=== PATIENT | male | born 2000 | race Caucasian/White ===

== ENCOUNTER 2021-09-02 02:25 | Inpatient (IN) ==
--- NOTE | 2021-09-02 02:44 | Emergency Department Note ---
Impression & Plan Suicidal thoughts Admit ED Provider Note HPI: The patient is a 21-year-old male with history of alcohol abuse, he is currently in inpatient rehabilitation for alcohol abuse at [facility], presents the emergency department with suicidal thoughts. Patient states that today he was beginning to have thoughts of suicide and was thinking about hanging himself. He mentioned this to one of the nurses at his facility and therefore was sent to the ED for evaluation. On arrival the patient is calm and cooperative, he is in no acute distress on my initial evaluation ROS: -Psychiatric: Suicidal thoughts *10 point review systems was conducted and is otherwise negative unless stated above *Outpatient medications and allergy history reviewed PE: General: Alert, NAD HEENT: Normocephalic, atraumatic Eyes: Extraocular eye movement is intact, no scleral erythema Pulmonary: Clear to auscultation bilaterally, no wheezing Cardio: Regular rate and rhythm GI: Abdomen is soft, nontender : No suprapubic tenderness MSK: No evidence of trauma or malformation of the extremities, no edema Skin: No evidence of rash Neuro: Alert, no focal deficits Psychiatric: Cooperative Medical Decision Making: Patient presented to the emergency department with suicidal thoughts, stated he was having thoughts of wanting to hang himself. He is currently inpatient for alcohol addiction at the [facility]. Patient was medically cleared while here in the ED during my shift, assessed by case management, patient has been assessed for possible placement at [facility] but he is from the [facility] and is requesting transfer to a [facility]. Referral is currently outgoing, will plan for admission here at [facility] if the patient is not able to be accepted closer to home in the [facility]. Patient remained calm and cooperative throughout his stay here in the ED during my shift. He was signed out to my colleague, Dr. Mina, pending final disposition in regards to the above referrals for inpatient psychiatric care. Patient is here voluntarily currently under 201. Diagnosis: 1. Suicidal thoughts with plan Disposition: Hand Off Shaquille Reyes DO Emergency Medicine Past Med/Surg History Social History Smoking Status: Current every day smoker Tobacco Type: Cigarettes and E-cigarettes / Vaping Preferred Language: Occitan Feels Safe at Home: Yes Allergies Allergies Allergy/AdvReac Type Severity Reaction Status Date / Time No Known Allergies Allergy Unverified 09/02/21 03:09 Home Meds Home Medications Medication Instructions Recorded Confirmed quetiapine 100 mg tablet 100 mg PO HS 09/02/21 09/02/21 Results & Data (ED) Vital Signs Vital Signs - 24 hr 09/02/21 02:29 09/02/21 04:17 Temperature 36.8 C Temperature Source Oral Pulse Rate 103 H Pulse Rate [Left Finger] 78 Respiratory Rate 18 20 Blood Pressure 163/81 H Blood Pressure [Left Arm] 129/78 Blood Pressure Mean 108 Blood Pressure Mean [Left Arm] 95 Pulse Oximetry 98 98 Oxygen Delivery Method Room Air Room Air Sepsis Recent Fever Within 48 Hours No Sepsis New/Unexplained Change in Mental Status N/A Sepsis Action Taken by Nursing No Action Required Laboratory Data Result diagrams: 09/02/21 02:50 09/02/21 02:50 Lab Results 09/02/21 09/02/21 09/02/21 Range/Units 02:30 02:30 02:50 WBC 8.75 (4.8-10.8) K/ul RBC 4.91 (4.63-6.08) M/uL Hgb 14.8 (14.0-18.0) g/dl Hct 41.4 (40.1-51.0) % MCV 84.3 (80.0-100.0) fL MCH 30.1 (25.0-34.0) pg MCHC 35.7 (32.0-36.0) g/dL RDW Std Deviation 34.7 L (36.4-46.3) fL RDW Coeff of Airam 11.4 L (11.5-14.5) % Plt Count 269 (130-400) K/uL MPV 9.5 (9.4-12.4) fL Immature Gran % (Auto) 0.2 % Neut % (Auto) 54.5 % Lymph % (Auto) 35.3 % [place] % (Auto) 7.7 % Eos % (Auto) 1.8 % Baso % (Auto) 0.5 % Neut # (Auto) 4.77 (1.4-6.5) K/uL Lymph # (Auto) 3.09 (1.2-3.4) K/uL [place] # (Auto) 0.67 (0.24-0.82) K/uL Eos # (Auto) 0.16 (0-0.50) K/uL Baso # (Auto) 0.04 (0-0.2) K/uL Immature Gran # (Auto) 0.02 (0.00-0.02) K/uL Sodium (136-145) mmol/L Potassium (3.5-5.1) mmol/L Chloride (98-107) mmol/L Carbon Dioxide (21-32) mmol/L Anion Gap (3-11) BUN (6-23) mg/dl Creatinine (0.6-1.4) mg/dl Est Cr Clr Drug Dosing Est GFR ( Amer) ml/min Est GFR (Non-Af Amer) ml/min BUN/Creatinine Ratio (10-20) Glucose (70-99(Fasting)) mg/dl Calcium (8.5-10.1) mg/dl Total Bilirubin (0.2-1.0) mg/dl AST (13-39) U/L ALT (7-52) U/L Alkaline Phosphatase (34-104) U/L Total Protein (6.0-8.3) gm/dl Albumin (3.4-5.0) gm/dl Globulin (2.5-4.0) gm/dl Albumin/Globulin Ratio (0.9-2) TSH (0.300-4.500) uIu/ml Urine Color Yellow Urine Appearance Clear (Clear) Urine pH 6.0 (4.5-7.5) Ur Specific [place] 1.025 (1.000-1.030) Urine Protein Negative (Negative) Urine Glucose (UA) Negative (Negative) Urine Ketones Trace H (Negative) Urine Blood Negative (Negative) Urine Nitrite Negative (Negative) Urine Bilirubin Negative (Negative) Urine Urobilinogen Negative (Negative) Ur Leukocyte Esterase Negative (Negative) Salicylates (3.0-30) mg/dl Urine Opiates Screen Neg (Neg) Ur Methadone, Qual Neg (Neg) Acetaminophen (10-30) ug/ml Urine Barbiturates Neg (Neg) Ur Phencyclidine (PCP) Neg (Neg) U Amphetamin/Meth Scrn Neg (Neg) MDMA (Ecstasy) Screen Neg (Neg) U Benzodiazepines Scrn Neg (Neg) Ur Cocaine Metabolite Neg (Neg) U Marijuana (THC) Screen Pos H (Neg) Ethyl Alcohol mg/dL (<10.0) mg/dl SARS-CoV-2, RNA, NAAT (NEGATIVE) 09/02/21 09/02/21 09/02/21 Range/Units 02:50 02:50 02:50 WBC (4.8-10.8) K/ul RBC (4.63-6.08) M/uL Hgb (14.0-18.0) g/dl Hct (40.1-51.0) % MCV (80.0-100.0) fL MCH (25.0-34.0) pg MCHC (32.0-36.0) g/dL RDW Std Deviation (36.4-46.3) fL RDW Coeff of Airam (11.5-14.5) % Plt Count (130-400) K/uL MPV (9.4-12.4) fL Immature Gran % (Auto) % Neut % (Auto) % Lymph % (Auto) % [place] % (Auto) % Eos % (Auto) % Baso % (Auto) % Neut # (Auto) (1.4-6.5) K/uL Lymph # (Auto) (1.2-3.4) K/uL [place] # (Auto) (0.24-0.82) K/uL Eos # (Auto) (0-0.50) K/uL Baso # (Auto) (0-0.2) K/uL Immature Gran # (Auto) (0.00-0.02) K/uL Sodium 140 (136-145) mmol/L Potassium 3.7 (3.5-5.1) mmol/L Chloride 104 (98-107) mmol/L Carbon Dioxide 27 (21-32) mmol/L Anion Gap 9 (3-11) BUN 19 (6-23) mg/dl Creatinine 0.78 (0.6-1.4) mg/dl Est Cr Clr Drug Dosing Not Reportable Est GFR ( Amer) 147.5 ml/min Est GFR (Non-Af Amer) 127.2 ml/min BUN/Creatinine Ratio 24.4 H (10-20) Glucose 86 (70-99(Fasting)) mg/dl Calcium 9.1 (8.5-10.1) mg/dl Total Bilirubin 0.5 (0.2-1.0) mg/dl AST 20 (13-39) U/L ALT 13 (7-52) U/L Alkaline Phosphatase 47 (34-104) U/L Total Protein 6.8 (6.0-8.3) gm/dl Albumin 4.5 (3.4-5.0) gm/dl Globulin 2.3 L (2.5-4.0) gm/dl Albumin/Globulin Ratio 2.0 (0.9-2) TSH 3.395 (0.300-4.500) uIu/ml Urine Color Urine Appearance (Clear) Urine pH (4.5-7.5) Ur Specific [place] (1.000-1.030) Urine Protein (Negative) Urine Glucose (UA) (Negative) Urine Ketones (Negative) Urine Blood (Negative) Urine Nitrite (Negative) Urine Bilirubin (Negative) Urine Urobilinogen (Negative) Ur Leukocyte Esterase (Negative) Salicylates < 3.0 L (3.0-30) mg/dl Urine Opiates Screen (Neg) Ur Methadone, Qual (Neg) Acetaminophen < 3 L (10-30) ug/ml Urine Barbiturates (Neg) Ur Phencyclidine (PCP) (Neg) U Amphetamin/Meth Scrn (Neg) MDMA (Ecstasy) Screen (Neg) U Benzodiazepines Scrn (Neg) Ur Cocaine Metabolite (Neg) U Marijuana (THC) Screen (Neg) Ethyl Alcohol mg/dL (<10.0) mg/dl SARS-CoV-2, RNA, NAAT (NEGATIVE) 09/02/21 09/02/21 Range/Units 02:50 02:50 WBC (4.8-10.8) K/ul RBC (4.63-6.08) M/uL Hgb (14.0-18.0) g/dl Hct (40.1-51.0) % MCV (80.0-100.0) fL MCH (25.0-34.0) pg MCHC (32.0-36.0) g/dL RDW Std Deviation (36.4-46.3) fL RDW Coeff of Airam (11.5-14.5) % Plt Count (130-400) K/uL MPV (9.4-12.4) fL Immature Gran % (Auto) % Neut % (Auto) % Lymph % (Auto) % [place] % (Auto) % Eos % (Auto) % Baso % (Auto) % Neut # (Auto) (1.4-6.5) K/uL Lymph # (Auto) (1.2-3.4) K/uL [place] # (Auto) (0.24-0.82) K/uL Eos # (Auto) (0-0.50) K/uL Baso # (Auto) (0-0.2) K/uL Immature Gran # (Auto) (0.00-0.02) K/uL Sodium (136-145) mmol/L Potassium (3.5-5.1) mmol/L Chloride (98-107) mmol/L Carbon Dioxide (21-32) mmol/L Anion Gap (3-11) BUN (6-23) mg/dl Creatinine (0.6-1.4) mg/dl Est Cr Clr Drug Dosing Est GFR ( Amer) ml/min Est GFR (Non-Af Amer) ml/min BUN/Creatinine Ratio (10-20) Glucose (70-99(Fasting)) mg/dl Calcium (8.5-10.1) mg/dl Total Bilirubin (0.2-1.0) mg/dl AST (13-39) U/L ALT (7-52) U/L Alkaline Phosphatase (34-104) U/L Total Protein (6.0-8.3) gm/dl Albumin (3.4-5.0) gm/dl Globulin (2.5-4.0) gm/dl Albumin/Globulin Ratio (0.9-2) TSH (0.300-4.500) uIu/ml Urine Color Urine Appearance (Clear) Urine pH (4.5-7.5) Ur Specific [place] (1.000-1.030) Urine Protein (Negative) Urine Glucose (UA) (Negative) Urine Ketones (Negative) Urine Blood (Negative) Urine Nitrite (Negative) Urine Bilirubin (Negative) Urine Urobilinogen (Negative) Ur Leukocyte Esterase (Negative) Salicylates (3.0-30) mg/dl Urine Opiates Screen (Neg) Ur Methadone, Qual (Neg) Acetaminophen (10-30) ug/ml Urine Barbiturates (Neg) Ur Phencyclidine (PCP) (Neg) U Amphetamin/Meth Scrn (Neg) MDMA (Ecstasy) Screen (Neg) U Benzodiazepines Scrn (Neg) Ur Cocaine Metabolite (Neg) U Marijuana (THC) Screen (Neg) Ethyl Alcohol mg/dL < 10.0 (<10.0) mg/dl SARS-CoV-2, RNA, NAAT NEGATIVE (NEGATIVE) Discharge Plan Visit Data Chief Complaint: Mental Health Evaluation Stated Complaint: MENTAL HEALTH EVAL (SUICIDAL IDEATION) ED Provider: Shaquille Reyes Discharge Problem: Suicidal thoughts Forms Stand Alone Forms: [facility], Suicide Prevention Resources Prescriptions Prescriptions: No Action quetiapine 100 mg tablet 100 mg PO HS Referrals Referrals: PCP,NO [Primary Care Provider] -
[2021-09-02 03:05] LABS: Basophils # (auto) 0.04 K/uL (0-0.2); Basophils % (auto) 0.5 %; Eosinophils # (auto) 0.16 K/uL (0-0.50); Eosinophils % (auto) 1.8 %; Hematocrit (blood only) 41.4 % (40.1-51.0); Hemoglobin 14.8 g/dl (14.0-18.0); Immature Granulocytes # (auto) 0.02 K/uL (0.00-0.02); Immature Granulocytes % (auto) 0.2 %; Lymphocytes # (auto) 3.09 K/uL (1.2-3.4); Lymphocytes % (auto) 35.3 %; Mean Corpuscular Hemoglobin 30.1 pg (25.0-34.0); Mean Corpuscular Hgb Conc 35.7 g/dL (32.0-36.0); Mean Corpuscular Volume 84.3 fL (80.0-100.0); Mean Platelet Volume 9.5 fL (9.4-12.4); Monocytes # (auto) 0.67 K/uL (0.24-0.82); Monocytes % (auto) 7.7 %; Neutrophils # (auto) 4.77 K/uL (1.4-6.5); Neutrophils % (auto) 54.5 %; Platelet Count 269 K/uL (130-400); RDW Coefficient of Variation 11.4 % (11.5-14.5); RDW Standard Deviation 34.7 fL (36.4-46.3); Red Blood Count 4.91 M/uL (4.63-6.08); White Blood Count 8.75 K/ul (4.8-10.8)
[2021-09-02 03:20] LABS: Appearance Urine Clear (Clear); Bilirubin Urine Negative (Negative); Blood Urine Negative (Negative); Color Urine Yellow; Glucose Urine UA Negative (Negative); Ketones Urine Trace (Negative); Leukocyte Esterase Urine Negative (Negative); Nitrite Urine Negative (Negative); Protein Urine Negative (Negative); Specific Gravity Urine 1.025 (1.000-1.030); Urobilinogen Urine Negative (Negative)
[2021-09-02 03:30] LABS: Alanine Aminotransferase 13 U/L (7-52); Albumin Level 4.5 gm/dl (3.4-5.0); Alkaline Phosphatase 47 U/L (34-104); Anion Gap 9 (3-11); Aspartate Aminotransferase 20 U/L (13-39); BUN Creatinine Ratio 24.4 (10-20); Bilirubin,Total 0.5 mg/dl (0.2-1.0); Blood Urea Nitrogen 19 mg/dl (6-23); Calcium 9.1 mg/dl (8.5-10.1); Carbon Dioxide 27 mmol/L (21-32); Chloride 104 mmol/L (98-107); Est GFR (African American) 147.5 ml/min; Est GFR (Non-African American) 127.2 ml/min; Globulin 2.3 gm/dl (2.5-4.0); Glucose 86 mg/dl (70-99(Fasting)); Potassium 3.7 mmol/L (3.5-5.1); Sodium 140 mmol/L (136-145); Total Protein 6.8 gm/dl (6.0-8.3)
[2021-09-02 03:31] LABS: Acetaminophen < 3 ug/ml (10-30); Salicylate < 3.0 mg/dl (3.0-30)
[2021-09-02 04:07] LABS: Amphetamines+Metham, Urine Neg (Neg); Barbiturates, Urine Neg (Neg); Benzodiazepine, Urine Neg (Neg); Cocaine, Urine Neg (Neg); MDMA (Ecstacy), Urine Neg (Neg); Methadone, Urine Neg (Neg); Opiate, Urine Neg (Neg); Phencyclidine, Urine Neg (Neg)
--- NOTE | 2021-09-02 06:48 | Emergency Department Note ---
ED Visit Note Start Time: 644 Reason: Patient with PMHx of alcohol abuse underwent ED Observation for suicidal ideations. Fam Hx: No pertinent family history SocHx: See Below Assessment(s): Patient was reevaluated multiple times Summary: Patient was seen and evaluated by Dr. Graves and medically cleared. Patient went to hang himself and is currently from [facility] rehab. Currently looking for placement and appears as though patient will be placed at [facility] Disposition: Patient was accepted to [facility] at 12 PM Total Time:5:15 min .
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
[2021-09-02] MEDS ORDERED: hydrOXYzine HCl 25 MG TAB PO PRN ×2 (12:29)
[2021-09-02] MEDS ORDERED: ALUMINUM/MAGNESIUM SUSP 30 ML UDC PO PRN (12:29)
[2021-09-02] MEDS ORDERED: SODIUM CHLORIDE 0.65% NA SOLN 45 ML (OCEAN) PRN (12:29)
[2021-09-02] MEDS ORDERED: BISMUTH SUBSALICYLATE LIQD 236 ML PO PRN (12:29)
[2021-09-02] MEDS ORDERED: MAGNESIUM HYDROXIDE SUSP 30 ML UDC PO PRN (12:29)
[2021-09-02] MEDS ORDERED: ACETAMINOPHEN 325 MG TAB PO PRN (12:29)
[2021-09-02] MEDS ORDERED: QUEtiapine FUMARATE 25 MG TABLET PO STA (14:32)
[2021-09-02] MEDS: NICOTINE 21 MG/24 HR TDSY TD SCH (15:04)
[2021-09-02] MEDS ORDERED: QUEtiapine FUMARATE 100 MG TABLET PO SCH (21:00)
[2021-09-02] MEDS: QUEtiapine FUMARATE 100 MG TABLET PO SCH (21:25)
[2021-09-03] MEDS: NICOTINE 21 MG/24 HR TDSY TD SCH (07:51)
[2021-09-03 08:15] LABS: Chol HDL Ratio 2.6 (0-5)
--- NOTE | 2021-09-03 11:47 | Psychiatric Progress Note ---
Date of Service September 03, 2021 Impression / Recommendations Impression 21 yo male with hx of recurrent depressive symptoms (SI, poor sleep) presents on transfer from rehab for recurrence of suicidal thoughts. He does not identify a specific stressor but seems unmotivated to return to rehab. He is somewhat guarded at this time and cannot fully engage in breif intervention around his ETOH use. Need collateral from family and records. Presentation is suspicious for bipolar II disorder yet difficult differential given reported trauma hx and family hx of bipolar disorder and recent substance use. doesn't need AWSS protocol as well outside of window for ETOH withdrawal. 09/03/21: limited engagement in treatment, states he wants to be in rehab (1) Depressive disorder: (2) Alcohol use disorder: Plan 09/03/21: rehab referral, continue to encouragement engagement in treatment. 09/02/21: The patient was admitted to the [facility] ([facility]) on q15 min checks (behavioral with suicide precautions) for safety. The patient will participate in group, recreational, and milieu therapies and will be offered additional individual and family sessions as clinically appropriate. Although he asked about a 72 hr notice he understood his current treatment plan and was accepting of it, willing to take Seroquel prn currently and continue 100 mg this hs. Risks/benefits/alternatives were reviewed re: antipsychotics for mood and/or psychosis. Discussion included but was not limited to metabolic side effects, risks of TD and suicidal thoughts. There were no abnormal motor movements at baseline. Fasting glucose and lipid panel ordered for baseline monitoring. Inventory Assets Strengths: help seeking, employed Needs: aftercare planning, rehab Suicide Risk Level Suicide Risk Level: Moderate (q15 min suicide checks) Risk Factors Assessment Male: Yes : Yes Do You Have Access To A Gun?: No Health Problems: No Mental Health Diagnoses: Yes Substance Use Disorders: Yes Previous Attempt: No Protective Factors Assessment : No Employed: No Interval History Identifying Information WALDEMAR GIRALDO is a 21-year-old M who from [facility], has a history of depression, and was admitted on 09/02/21 11:50 on a 201 voluntary commitment for SI with plan to hang himself while at [facility] rehab. Chief Complaint "I just want to go to this one rehab where I feel comfortable". Review of Systems Sleep Information Total Hours of Sleep: 8.25 Meal Information Percent Meal Consumed - Breakfast: 100 Percent Meal Consumed - Lunch: 100 Percent Meal Consumed - Dinner: 100 Subjective Subjective Patient was seen & assessed and interval progress reviewed with nursing and social work. Requesting referral to a [facility] facility. He is rather evasive with regards to additional collateral psych hx, would not sign records for previous inpatient hospitalization. Signed MARTIN for mother but currently stating he does not want her contacted or involved in his stay. Indicates he is no longer suicidal. Doesn't engage with staff or go to programming, he won't elaborate on why. Does not appear paranoid in interactions when in day room watching tv. Refused hs Seroquel as didn't want it so close to 50 mg dose that he requested. Physical Exam Psychiatric Orientation: alert and oriented x 3 Apperance: appropriately groomed Eye Contact: + fair eye contact Motor Behavior: no abnormal motor movements Speech: normal rate/rhythm/volume of speech Affect: + depressed affect Mood: + anxious mood Thought Process: + concrete thought process Thought Content: reality based without delusions Suicidal Thoughts: denies suicidal thoughts, denies suicidal plan and denies suicidal intent Homicidal Thoughts: denies homicidal thoughts Hallucinations: no auditory hallucinations and no visual hallucinations Cognition: attention grossly intact and language grossly intact Estimated Intelligence: consistent with education level Insight: + limited insight Judgement: + limited judgement Vital Signs (Past 24 Hours) Last Vital Signs Temp 36.4 C L 09/03/21 06:50 Pulse 76 09/03/21 06:50 Resp 16 09/03/21 06:50 BP 106/72 09/03/21 06:50 Pulse Ox 98 09/02/21 12:45 O2 Del Method 09/02/21 12:45 Results & Data ([facility]) Laboratory Results Laboratory Results - last 24 hr 09/03/21 07:13 Fasting Glucose 84 Triglycerides 90 Cholesterol 144 LDL Cholesterol, Calc 71 VLDL Cholesterol, Calc 18 HDL Cholesterol 55 Cholesterol/HDL Ratio 2.6 Current Inpatient Medications Current Inpatient Medications: Current Inpatient Medications Acetaminophen (Acetaminophen 325 Mg Tab) 650 mg PO Q4H PRN PRN Reason: Headache or Minor Fever Stop: 10/02/21 12:28 Al Hydrox/Mg Hydrox/Simethicone (Aluminum/Magnesium Susp 30 Ml Udc) 30 ml PO Q4H PRN PRN Reason: GI Upset Stop: 10/02/21 12:28 Bismuth Subsalicylate (Bismuth Subsalicylate Liqd 236 Ml) 15 ml PO PRN PRN PRN Reason: Loose Stool Stop: 10/02/21 12:28 Hydroxyzine HCl (Hydroxyzine Hcl 25 Mg Tab) 50 mg PO HSZ PRN PRN Reason: Insomnia Stop: 10/02/21 12:28 Hydroxyzine HCl (Hydroxyzine Hcl 25 Mg Tab) 25 mg PO Q4H PRN PRN Reason: Anxiety Stop: 10/02/21 12:28 Magnesium Hydroxide (Magnesium Hydroxide Susp 30 Ml Udc) 30 ml PO DAILY PRN PRN Reason: Constipation Stop: 10/02/21 12:28 Miscellaneous (Remove Nicoderm Patch) 1 each N/A DAILY@0859 KIMBERLY Stop: 10/03/21 08:58 Last Admin: 09/03/21 07:51 Dose: 1 each Nicotine (Nicotine 21 Mg/24 Hr Tdsy) 21 mg TD QAM KIMBERLY Stop: 10/02/21 12:44 Last Admin: 09/03/21 07:51 Dose: 21 mg Quetiapine Fumarate (Quetiapine Fumarate 100 Mg Tablet) 100 mg PO HS KIMBERLY Stop: 10/02/21 21:59 Last Admin: 09/02/21 21:25 Dose: Not Given Sodium Chloride (Sodium Chloride 0.65% Na Soln 45 Ml ([place])) 1 - 2 sprays NA PRN PRN PRN Reason: Nasal Dryness/Congestion Stop: 10/02/21 12:28
[2021-09-03] MEDS: QUEtiapine FUMARATE 100 MG TABLET PO SCH (20:51)
[2021-09-04 10:32] LABS: Marijuana Quant, GCMS Urine 161 ng/mL (<5)
[2021-09-04] MEDS: NICOTINE 21 MG/24 HR TDSY TD SCH (11:47)
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
== END 2021-09-04 12:35 | disposition home or self-care (01) | DRG 881 ==
LOC: ED 02:25 → 3S 11:50 → ED 12:06